=== PATIENT | female | born 1960 | race Caucasian/White ===

== ENCOUNTER 2017-01-12 09:29 | Emergency (ER) | payer BC ==
--- NOTE | 2017-01-12 09:49 | ED Physician Documentation ---
General Adult - HISTORIAN Historian: patient - HPI Chief Complaint: General Adult Onset: days ago (2 days ago) Timing: better Severity: moderate Context: no precipitating factor Further Comments: yes (Patient states that for the last 2 days in the AM she has had a spell where her eyes deviate to t e left, episodes lasted about several minutes then resolved. Today had a similar episode and then she developed some jerking in her neck muscles that deviated her head to the left. This last for several minutes. Patient states that she then almost passed out for less then a minute. Patient states that she has been under a lot of stress recently.) - ROS CONST: no problems. denies: fever EYES/ENT: denies: problems with vision CVS/RESP: none GI/: none - PAST HX Past History: other (allergic rhinnitis) Surgeries/Procedures: BTL, hysterectomy Allergies/Adverse Reactions: Allergies Allergy/AdvReac Type Severity Reaction Status Date / Time No Known Allergies Allergy Verified 01/12/17 10:00 - SOCIAL HX Smoking History: less than 1 pack/day (6 cirgarrets a day) Alcohol Use: none Drug Use: none - FAMILY HX Family History: No (no seizure history) - VITAL SIGNS Vital Signs: Vital Signs Temp Pulse Resp BP Pulse Ox 135/84 03/04/13 14:00 - REVIEWED ASSESSMENTS Nursing Assessment Reviewed: Yes Vitals Reviewed: Yes Progress - Progress Progress: 11:04 No further seizure activity, resting comfortably, awake with no neuro symptoms ED Results Lab/Radiology - Radiology Radiology Impressions: Patient Study Name: TANIA OLIVO Date: Jan 12, 2017 9:55:19 AM CDT Modality Type: CT\SR Gender: F Description: CT BRAIN W/O CONTRAST : 64 Institution: [facility] Physician: JANE MENDEZ - ER HISTORY: 56-year-old female with possible seizure, twitching, near-syncope. COMPARISON: None available. TECHNIQUE: Noncontrast axial CT images of the head were performed. FINDINGS: There is subtle increased density within the right posterior frontal lobe (images 22-25, series 2). This likely represents acute to subacute subarachnoid hemorrhage. No significant surrounding edema or sulcal effacement. No midline shift, hydrocephalus, or evidence of acute large vessel infarct. The mastoid air cells and middle ear spaces are clear. There is mucosal thickening in the left maxillary sinus. IMPRESSION: 1. Probable small right posterior frontal subarachnoid hemorrhage. This may be acute or subacute. Recommend short interval follow-up CT scan of the head without contrast versus follow-up MRI of the brain. 2. Left maxillary sinus disease. These findings were discussed with Dr. Mendez in the emergency room on 01/12/2017 at 10:21 a.m. CDT. Electronically signed on Jan 12, 2017 10:22:59 AM CDT by: Phillip Stanford - Orders Orders: ED Orders Category Date Time Status Place Saline Lock/IV Now Care 01/12/17 09:[address] BRAIN W/O CONTRAST Stat Exams 01/12/17 Ordered CBC/PLATELET/DIFF Routine Lab 01/12/17 Ordered CMP Routine Lab 01/12/17 Ordered EKG WITH COMPARISON Routine Ther 01/12/17 09:44 Ordered General Adult Physical Exam - PHYSICAL EXAM GENERAL APPEARANCE: mild distress EENT: eye inspection normal (PERRLA, EOM normal, fundi normal), ENT inspection normal, no signs of dehydration, no nystagmus. No: papilledema NECK: normal inspection, supple RESPIRATORY: no resp distress, chest non-tender, breath sounds normal. No: wheezes, rales, rhonchi CVS: reg rate & rhythm, heart sounds normal, equal pulses, no murmur, no gallop ABDOMEN: soft, no organomegaly, normal bowel sounds, no abdominal bruit, no distension, non-tender SKIN: warm/dry, normal color EXTREMITIES: non-tender, no edema NEURO: oriented X3, CN's nml as tested, motor nml, sensation nml, mood/affect nml, cognition normal Discharge Clincal Impression: Seizure, Acute spontaneous subarachnoid intracranial hemorrhage Condition: Stable Disposition: 02 XFER [facility] Decision to Admit: [id number] Date of Decison to Admit: 01/12/17 Decision Time: 11:32
[2017-01-12 10:24] LABS: BASOPHILS % 0.6 (0.0-1.5); EOSINOPHILS % 1.9 % (0.0-6.8); MEAN CORPUSCULAR HEMOGLOBIN 29.9 pg (28.0-34.0); MEAN CORPUSCULAR VOLUME 91.1 fl (80.0-100.0); MONOCYTES % 4.3 % (0.0-11.0); NEUTROPHILS # 3.5 # k/uL (1.4-7.7)
[2017-01-12 10:29] LABS: eGFR (African) > 60; eGFR (Non-African) > 60
[2017-01-12] MEDS ORDERED: FOSPHENYTOIN SODIUM IV STA (11:15)
[2017-01-12] MEDS ORDERED: SODIUM CHLORIDE 0.9% IV STA (11:15)
[2017-01-12] MEDS ORDERED: 0.9 % SODIUM CHLORIDE 100 ML IV ONE (11:19)
[2017-01-12 11:41] VITALS: BP 131/92
--- NOTE | 2017-01-12 20:04 | Diagnostic Imaging Report ---
JANE MENDEZ [facility] [id number] Replaced By [facility] [address] [address] Report Submission Date: Jan 12, 2017 10:22:59 AM CDT Patient Study Name: TANIA OLIVO Date: Jan 12, 2017 9:55:19 AM CDT Modality Type: CT\SR Gender: F Description: CT BRAIN W/O CONTRAST : 64 Institution: [facility] Physician: JANE MENDEZ HISTORY: 56-year-old female with possible seizure, twitching, near-syncope. COMPARISON: None available. TECHNIQUE: Noncontrast axial CT images of the head were performed. FINDINGS: There is subtle increased density within the right posterior frontal lobe (images 22-25, series 2). This likely represents acute to subacute subarachnoid hemorrhage. No significant surrounding edema or sulcal effacement. No midline shift, hydrocephalus, or evidence of acute large vessel infarct. The mastoid air cells and middle ear spaces are clear. There is mucosal thickening in the left maxillary sinus. IMPRESSION: 1. Probable small right posterior frontal subarachnoid hemorrhage. This may be acute or subacute. Recommend short interval follow-up CT scan of the head without contrast versus follow-up MRI of the brain. 2. Left maxillary sinus disease. These findings were discussed with Dr. Mendez in the emergency room on 01/12/2017 at 10:21 a.m. CDT. Electronically signed on Jan 12, 2017 10:22:59 AM CDT by: Phillip HUGHES
[2017-01-13 05:24] LABS: APPEARANCE,URINE CLEAR (CLEAR); COLOR,URINE YELLOW (YELLOW)
[2017-01-13 05:25] LABS: OCCULT BLOOD,URINE NEGATIVE (NEGATIVE); PH URINE 5.5 (5.0 - 8.0); UROBILINOGEN URINE 0.2 Eu (0.2-1.0)
== END 2017-01-12 11:39 | disposition short-term general hospital (02) ==
LOC: ED 09:29
DX: I60.9 Nontraumatic subarachnoid hemorrhage, unspecified (principal); R56.9 Unspecified convulsions
CPT/HCPCS: 70450; 80053; 81002; 85025; 93005; J7030; Q2009; 96360; 99283; 99284; S1016

== ENCOUNTER 2017-03-25 12:09 | Day surgery (SDC) | payer BC ==
--- NOTE | 2017-03-27 13:40 | GI Report ---
REFERRING PHYSICIAN: Dr. Jennifer Caballero VOCATIONAL REHABILITATION COUNSELOR: Marvin Mulligan MD PROCEDURE MEDICATION: Propofol as per anesthesia. INDICATIONS: A 56-year-old woman is referred for her first colonoscopy. She did have a bout possibly of diverticulitis a couple of years ago in the emergency room. She did have some brain surgery with apparently some vascular abnormalities. She is a diabetic and on oral agents. She is 5 feet 5 inches and weighs 91 kilograms. She has had a previous hysterectomy. PROCEDURE PERFORMED: Colonoscopy. PROCEDURE: An Olympus video colonoscope was advanced into the rectum. She does have moderate severe diverticular disease in the sigmoid and descending colon. I do not see diverticulitis at present. Kind of an atonic redundant colon. It took some maneuvering to finally reach the cecum. The appendiceal orifice and terminal ileum looked normal. On slow withdrawal, the cecum, ascending colon, and transverse colon with redundancy. No obvious intraluminal lesions noted. The descending colon and particularly the sigmoid with moderate severe diverticular disease. No obvious intraluminal lesions were noted. Retroflexion of the rectum was normal. Patient tolerated the procedure well. FINDINGS: Moderate diverticular disease of the sigmoid and descending colon. RECOMMENDATIONS: 1. Would try to increase fiber in the diet, even Metamucil or Citrucel daily. 2. Diabetic diet including a lot of fiber is good for the colon. 3. Consider re-looking at her colon in 10 years, sooner if clinically indicated. 4. Follow up with Dr. Caballero. cc: Dr. Jennifer HUGHES
== END 2017-03-25 12:10 ==
LOC: OPSURG 12:09
PROVIDERS: ATTEND Internal Medicine Gastroenterology
DX: Z12.11 Encounter for screening for malignant neoplasm of colon (principal); K57.30 Diverticulosis of large intestine without perforation or abscess without bleeding
CPT/HCPCS: J2704; J7120; 45378; S1016

== ENCOUNTER 2017-04-20 09:06 | Outpatient (CLI) | payer BC ==
[2017-04-20 09:57] LABS: eGFR (African) > 60; eGFR (Non-African) > 60
== END 2017-04-20 09:07 ==
LOC: LAB 09:06
PROVIDERS: ATTEND Physician Assistant
DX: E11.9 Type 2 diabetes mellitus without complications (principal)
CPT/HCPCS: 80053; 80061; 83036

== ENCOUNTER 2018-03-07 09:11 | Outpatient (CLI) | payer BC ==
[2018-03-07 09:26] LABS: BASOPHILS % 0.8 (0.0-1.5); EOSINOPHILS % 3.9 % (0.0-6.8); MEAN CORPUSCULAR HEMOGLOBIN 30.5 pg (28.0-34.0); MEAN CORPUSCULAR VOLUME 93.9 fl (80.0-100.0); MONOCYTES % 6.5 % (0.0-11.0)
[2018-03-07 09:51] LABS: eGFR (African) > 60; eGFR (Non-African) > 60
== END 2018-03-07 09:13 ==
LOC: LAB 09:11
PROVIDERS: ATTEND Physician Assistant
DX: Z00.00 Encounter for general adult medical examination without abnormal findings (principal); E11.9 Type 2 diabetes mellitus without complications; E53.8 Deficiency of other specified B group vitamins
CPT/HCPCS: 36415; 80053; 80061; 82306; 82607; 83036; 84443; 85025

== ENCOUNTER 2018-12-24 12:21 | Outpatient (CLI) | payer BC ==
[2018-12-24 12:46] LABS: BASOPHILS % 0.9 (0.0-1.5); EOSINOPHILS % 2.5 % (0.0-6.8); MEAN CORPUSCULAR HEMOGLOBIN 31.3 pg (28.0-34.0); MONOCYTES % 9.1 % (0.0-11.0); NEUTROPHILS # 4.9 # k/uL (1.4-7.7)
[2018-12-24 13:09] LABS: eGFR (Non-African) > 60
== END 2018-12-24 12:22 ==
LOC: LAB 12:21
PROVIDERS: ATTEND Family Medicine
DX: E11.9 Type 2 diabetes mellitus without complications (principal); R56.9 Unspecified convulsions; Z79.4 Long term (current) use of insulin
CPT/HCPCS: 36415; 80053; 80164; 80177; 82043; 83036; 85025

== ENCOUNTER 2019-02-02 08:07 | Outpatient (CLI) | payer BC | END 2019-02-02 08:10 | LOC: LAB 08:07 | PROVIDERS: ATTEND Family Medicine | DX: E78.5 Hyperlipidemia, unspecified (principal) | CPT/HCPCS: 36415; 80061 ==